=== PATIENT | female | born 1985 | race Caucasian/White ===

== ENCOUNTER 2016-10-13 06:57 | Outpatient (CLI) | payer BC, OTHER ==
[2016-10-14 20:52] LABS: TEST RESULT REPORT (())
== END 2016-10-13 06:58 | disposition home or self-care (01) ==
LOC: LAB.R 06:57
PROVIDERS: ATTEND Nurse Practitioner Obstetrics & Gynecology
DX: N76.0 Acute vaginitis (principal)
CPT/HCPCS: 81599; 87480; 87510; 87660

== ENCOUNTER 2017-03-16 11:25 | Outpatient (CLI) | payer OTHER ==
[2017-03-16 18:58] LABS: BASOPHILS % (AUTO) 0.4 %; EOSINOPHILS # (AUTO) 0.1 10^3/uL (0.0-0.7); HCT - HEMATOCRIT 37.3 % (37.0-47.0); HGB - HEMOGLOBIN 12.4 g/dL (12.0-16.0); LYMPHOCYTES % (AUTO) 17.2 %; MEAN CORPUSCULAR HEMOGLOBIN 30.5 pg (27.0-31.0); MEAN CORPUSCULAR HGB CONC 33.4 g/dL (32.0-36.0); MEAN CORPUSCULAR VOLUME 91.5 fL (81.0-99.0); MONOCYTES # (AUTO) 0.3 10^3/uL (0.0-1.0); NEUTROPHILS # (AUTO) 4.2 10^3/uL (1.5-6.6); NEUTROPHILS % (AUTO) 75.4 %; RED BLOOD COUNT 4.07 10^6/uL (4.20-5.40); RED CELL DISTRIBUTION WIDTH 13.2 % (12.0-15.0); UNCORRECTED WHITE BLOOD COUNT 5.6 x10^3/uL; WHITE BLOOD COUNT 5.6 x10^3/uL (4.8-10.8)
[2017-03-17 11:31] LABS: TEST RESULT REPORT
== END 2017-03-16 11:26 | disposition home or self-care (01) ==
LOC: LAB.WCP 11:25
PROVIDERS: ATTEND Nurse Practitioner Obstetrics & Gynecology
DX: Z36.9 Encounter for antenatal screening, unspecified (principal)
CPT/HCPCS: 36415; 81599; 85025; 86762; 86803; 86850; 86900; 86901; 87086; 87340; 87389

== ENCOUNTER 2017-06-01 13:50 | Outpatient (CLI) | payer OTHER | END 2017-06-01 13:51 | disposition home or self-care (01) | LOC: DI 13:50 | PROVIDERS: ATTEND Registered Nurse | DX: R01.1 Cardiac murmur, unspecified (principal) | CPT/HCPCS: 93306 ==

== ENCOUNTER 2017-06-02 07:30 | Outpatient (CLI) | payer OTHER ==
--- NOTE | 2017-06-03 11:47 | Ultrasound Report ---
OB ULTRASOUND: 06/02/2017 CLINICAL INDICATION: anatomy. TECHNIQUE: Real-time scanning was performed with assistance representative static images obtained. LAST MENSTRUAL PERIOD: 01/10/2017 Clinical Age: 20 weeks 3 days US Age: 20 weeks 5 days EFW Hadlock: 370 g EFW% Hadlock: 59% Heart Rate: 139 bpm EDC: 10/17/2017 US EDC: 10/15/2017 BPD Hadlock: 20 weeks 5 days Mean mm 48.7 HC Hadlock: 20 weeks 4 days Mean mm 182.2 AC Hadlock: 20 weeks 6 days Mean mm 156.8 FL Hadlock: 20 weeks 3 days Mean mm 33.5 Presentation: cephalic Placental Location: posterior Cervical Length: 4.6 cm Amniotic Fluid: 3.7 cm FINDINGS: There is a single viable intrauterine gestation, in cephalic presentation. heart rate is 139 BPM. The placenta is posterior, without evidence of previa. Cord insertion into the placenta is marginal, but not velamentous. Amniotic fluid volume is subjectively normal, with an MILTON of 3.7. By size, the fetus measures 20 weeks 5 days (20 weeks 3 days by LMP). The following anatomic structures were visualized and appear normal: The intracranial contents, including the ventricles and posterior fossa; the lips and orbits; the spine; the heart, including 4 chamber view and outflow tracts, and diaphragm; the abdominal contents, including the stomach, the bilateral kidneys, and urinary bladder, as well as a normal 3 vessel cord insertion; 4 limbs. No free fluid or adnexal lesion is appreciated. IMPRESSION: SINGLE VIABLE INTRAUTERINE GESTATION, WITH SIZE IN KEEPING WITH LMP DATING. NORMAL ANATOMIC SURVEY. MARGINAL PLACENTAL CORD ORIGIN, WHICH CAN BE ASSOCIATED WITH GROWTH RESTRICTION. RECOMMEND FOLLOWUP ULTRASOUND FOR GROWTH ASSESSMENT AND TO EVALUATE FOR PROGRESSION TO VELAMENTOUS CORD ORIGIN 28- 32 WEEKS GESTATIONAL AGE. MTDD
== END 2017-06-02 07:31 | disposition home or self-care (01) ==
LOC: DI 07:30
PROVIDERS: ATTEND Registered Nurse
DX: Z34.82 Encounter for supervision of other normal pregnancy, second trimester (principal)
CPT/HCPCS: 76811

== ENCOUNTER 2017-07-12 19:31 | Outpatient (CLI) | payer OTHER ==
[2017-07-12 20:19] VITALS: BP 101/81
[2017-07-12 20:32] LABS: RUPTURE OF MEMBRANES PLUS NEGATIVE (NEGATIVE)
== END 2017-07-12 20:50 | disposition home or self-care (01) ==
LOC: WFO 19:31 → FBP 19:38 → WFO 20:50
PROVIDERS: ATTEND Nurse Practitioner Obstetrics & Gynecology
DX: O47.02 False labor before 37 completed weeks of gestation, second trimester (principal); Z3A.26 26 weeks gestation of pregnancy
CPT/HCPCS: 84112; 99212

== ENCOUNTER 2017-07-23 08:27 | Outpatient (CLI) | payer OTHER ==
[2017-07-23 09:53] LABS: HGB - HEMOGLOBIN 12.4 g/dL (12.0-16.0); MEAN CORPUSCULAR HEMOGLOBIN 31.9 pg (27.0-31.0); MEAN CORPUSCULAR VOLUME 93.8 fL (81.0-99.0); MEAN PLATELET VOLUME 6.6 fL (7.9-10.8); RED BLOOD COUNT 3.88 10^6/uL (4.20-5.40); RED CELL DISTRIBUTION WIDTH 13.5 % (12.0-15.0); WHITE BLOOD COUNT 5.9 x10^3/uL (4.8-10.8)
== END 2017-07-23 08:28 | disposition home or self-care (01) ==
LOC: LAB 08:27
PROVIDERS: ATTEND Registered Nurse
DX: Z34.82 Encounter for supervision of other normal pregnancy, second trimester (principal)
CPT/HCPCS: 36415; 82950; 86850

== ENCOUNTER 2017-08-20 09:37 | Outpatient (CLI) | payer OTHER ==
--- NOTE | 2017-08-20 11:38 | Ultrasound Report ---
OB FOLLOWUP: 08/20/2017 CLINICAL INDICATION: Velamentous insertion of umbilical cord, check growth. TECHNIQUE: Real-time scanning was performed with national account representative static images obtained. COMPARISON: 06/02/2017. LAST MENSTRUAL PERIOD: 01/10/2017 Clinical Age: 31 weeks 5 days US Age: 32 weeks 1 day EFW Hadlock: 1914 grams EFW% Hadlock: 49.55% Heart Rate: 142 bpm EDC: 10/17/2017 US EDC: 10/14/2017 BPD Hadlock: 32 weeks 1 day; Mean mm 80 HC Hadlock: 32 weeks 3 days; Mean mm 294 AC Hadlock: 32 weeks 1 day; Mean mm 281 FL Hadlock: 32 weeks 0 days; Mean mm 62 Presentation: cephalic Placental Location: posterior Cervical Length: -- Amniotic Fluid: MILTON 11.9 cm; MVP 3.79 cm FINDINGS There is a single viable intrauterine gestation, in cephalic presentation. heart rate is 142 BPM. The placenta is posterior, without evidence of previa. Amniotic fluid volume is normal, with an MILTON of 11.9. By size of the fetus measures 32 weeks 1 day (31 weeks 5 days by LMP). Estimated weight by Hadlock method is 1914 grams, 50th percentile. No free fluid or adnexal lesion is appreciated. IMPRESSION: SINGLE VIABLE INTRAUTERINE GESTATION, WITH EXPECTED GROWTH. ESTIMATED WEIGHT BY HADLOCK METHOD OF 1914 GRAMS, 50TH PERCENTILE. TD: 08/20/2017 10:43 MTDD
== END 2017-08-20 09:38 | disposition home or self-care (01) ==
LOC: DI 09:37
PROVIDERS: ATTEND Registered Nurse
DX: O43.123 Velamentous insertion of umbilical cord, third trimester (principal)
CPT/HCPCS: 76816

== ENCOUNTER 2017-09-08 11:07 | Outpatient (CLI) | payer OTHER | END 2017-09-08 11:08 | disposition home or self-care (01) | LOC: LAB.R 11:07 | PROVIDERS: ATTEND Nurse Practitioner Obstetrics & Gynecology | DX: N89.8 Other specified noninflammatory disorders of vagina (principal) | CPT/HCPCS: 87070; 87181 ==

== ENCOUNTER 2017-09-18 11:20 | Outpatient (CLI) | payer OTHER | END 2017-09-18 11:21 | disposition home or self-care (01) | LOC: LAB.R 11:20 | PROVIDERS: ATTEND Registered Nurse | DX: Z36.9 Encounter for antenatal screening, unspecified (principal) | CPT/HCPCS: 87081 ==

== ENCOUNTER 2017-09-25 11:22 | Outpatient (CLI) | payer OTHER ==
[2017-09-25 12:08] VITALS: BP 95/60
[2017-09-25 12:11] LABS: BASOPHILS % (AUTO) 0.3 %; EOSINOPHILS % (AUTO) 0.6 %; HGB - HEMOGLOBIN 12.7 g/dL (12.0-16.0); LYMPHOCYTES # (AUTO) 1.3 10^3/uL (1.5-3.5); LYMPHOCYTES % (AUTO) 16.9 %; MEAN CORPUSCULAR HGB CONC 33.6 g/dL (32.0-36.0); MEAN CORPUSCULAR VOLUME 95.2 fL (81.0-99.0); MEAN PLATELET VOLUME 7.4 fL (7.9-10.8); MONOCYTES # (AUTO) 0.6 10^3/uL (0.0-1.0); MONOCYTES % (AUTO) 8.4 %; NEUTROPHILS # (AUTO) 5.6 10^3/uL (1.5-6.6); NEUTROPHILS % (AUTO) 73.8 %; PLT - PLATELET COUNT 142 10^3/uL (130-450); RED BLOOD COUNT 3.97 10^6/uL (4.20-5.40); WHITE BLOOD COUNT 7.5 x10^3/uL (4.8-10.8)
== END 2017-09-25 12:45 | disposition home or self-care (01) ==
LOC: WFO 11:22 → FBP 11:24 → WFO 12:45
PROVIDERS: ATTEND Nurse Practitioner Obstetrics & Gynecology
DX: O36.8330 Maternal care for abnormalities of the fetal heart rate or rhythm, third trimester, not applicable or unspecified (principal); Z3A.36 36 weeks gestation of pregnancy
CPT/HCPCS: 36415; 59025; 85025

== ENCOUNTER 2017-10-15 17:58 | Outpatient (CLI) | payer OTHER ==
[2017-10-15 18:32] VITALS: BP 115/67
== END 2017-10-15 19:00 | disposition home or self-care (01) ==
LOC: WFO 17:58 → FBP 18:01 → WFO 19:00
PROVIDERS: ATTEND Registered Nurse
DX: Z34.83 Encounter for supervision of other normal pregnancy, third trimester (principal)
CPT/HCPCS: 99213

== ENCOUNTER 2017-10-16 06:24 | Inpatient (IN) | payer OTHER ==
[2017-10-16] MEDS ORDERED: SODIUM CHLORIDE FLUSH 0.9% 10 ML SYRINGE IVP PRN (06:55)
[2017-10-16] MEDS: LACTATED RINGERS 1,000 ML IV SCH ×2 (06:55→08:17)
[2017-10-16] MEDS ORDERED: LACTATED RINGERS 1,000 ML IV ONE (07:03)
[2017-10-16] MEDS ORDERED: OXYTOCIN/SODIUM CHLORIDE 500 ML IV ONE (07:03)
[2017-10-16] MEDS ORDERED: SODIUM CHLORIDE FLUSH 0.9% 10 ML SYRINGE ONE ×2 (07:03→18:09)
[2017-10-16 07:12] LABS: BASOPHILS % (AUTO) 0.3 %; EOSINOPHILS % (AUTO) 0.3 %; HGB - HEMOGLOBIN 12.8 g/dL (12.0-16.0); LYMPHOCYTES # (AUTO) 1.2 10^3/uL (1.5-3.5); MEAN CORPUSCULAR HEMOGLOBIN 31.7 pg (27.0-31.0); MEAN CORPUSCULAR HGB CONC 33.9 g/dL (32.0-36.0); MEAN CORPUSCULAR VOLUME 93.6 fL (81.0-99.0); MEAN PLATELET VOLUME 8.3 fL (7.9-10.8); MONOCYTES # (AUTO) 0.7 10^3/uL (0.0-1.0); MONOCYTES % (AUTO) 7.7 %; NEUTROPHILS # (AUTO) 6.6 10^3/uL (1.5-6.6); NEUTROPHILS % (AUTO) 77.7 %; PLT - PLATELET COUNT 169 10^3/uL (130-450); RED BLOOD COUNT 4.02 10^6/uL (4.20-5.40); RED CELL DISTRIBUTION WIDTH 12.9 % (12.0-15.0); WHITE BLOOD COUNT 8.5 x10^3/uL (4.8-10.8)
[2017-10-16] MEDS ORDERED: PENICILLIN G POTASSIUM 5,000,000 UNIT in SODIUM CHLORIDE 0.9% MINIBAG 100 ML IV ONE (07:14)
[2017-10-16] MEDS ORDERED: fentaNYL 100 MCG/2 ML VIAL IVP PRN (07:20)
[2017-10-16] MEDS ORDERED: ONDANSETRON 4 MG/2 ML VIAL IVP PRN ×2 (07:20→10:03)
--- NOTE | 2017-10-16 07:23 | HISTORY & PHYSICAL EXAMINATION ---
Admit History - Instructions [place]/Slash: -Left hand click circles element as positive or present. -Right hand click slashes element as negative or not present. - Visit Reason Visit Reason: Contractions (beginning at 03:30) - : 2 Parity: 1 Premature: 0 Ectopic: 0 : 0 Care: positive: [facility] (beginning @ 8 weeks' gestation x15 total visits) Risk/History: positive: None Complications This : positive: Other (recurrent vulvovaginal candidiasis, e.coli vaginal colonization, GBS +) Smoking Status: Never smoker - Mother's Labs Mother's Blood Type: positive: O Mother's RH: positive: Positive GBS: positive: Group B Strep Positive Rubella Status: positive: Immune - Other Maternal History Other Maternal History: PMH: depression, stable on sertraline t/o PSH: None OBHx: 2016 41 weeks s/p IOL 8#11oz male w/o complication ([facility]) GYNHx: Hx HPV 2009, NILM pap 2015, recurrent vulvovaginal candidiasis, vaginal colonization w/ e. coli, tx'ed this w/ vaginal clindamycin w/ good effect SocHx: to Mamadou, denies DV; works f/t as [employer] in [place]; financially stable; denies etoh/drugs/tobacco, hx depression, presently stable on sertraline FamHx: non-contributory Meds/Allgy - Home Medications Home Medications: Ambulatory Orders Medication Instructions Recorded Confirmed Cephalexin 1 cap PO QID 06/08/15 06/08/15 - Allergies Allergies/Adverse Reactions: Allergies Allergy/AdvReac Type Severity Reaction Status Date / Time No Known Drug Allergies Allergy Verified 06/08/15 09:37 Review of Systems - Constitutional Constitutional: reports: Fatigue. denies: Fever, Chills, Weakness - Eyes Eyes: denies: Blurred vision, Spots in vision - Cardiovascular Cariovascular: denies: Irregular heart rate, Palpitations, Chest pain, Edema - Respiratory Respiratory: denies: Cough, Wheezing, SOB at rest, SOB with exertion - Gastrointestinal Gastrointestinal: reports: Abdominal pain (described as contractions). denies: Constipation, Diarrhea, Change in bowel habits, Nausea, Vomiting - Genitourinary Genitourinary: reports: Frequency, Urgency, Incontinence (stress). denies: Dysuria - Musculoskeletal Musculoskeletal: reports: Muscle pain, Back pain. denies: Muscle aches - Integumentary Integumentary: denies: Rash, Pruritis, Lesions - Neurological Neurological: denies: General weakness, Focal weakness, Headache, Dizziness, Numbness - Psychiatric Psychiatric: reports: Depression (managed for now), Anxiety (re: delivery) - All Other Systems All Other Systems: reports: Other (+FM, some bloody show this am, no LOF, contractions began @ 03:30) Physical - Abdominal Exam Vital Signs: Temp Pulse Resp BP Pulse Ox 36.9 C 47 L 18 116/71 100 10/16/17 07:00 10/16/17 07:00 10/16/17 07:00 10/16/17 07:00 10/16/17 07:00 Contraction Frequency (min/apart): 2 Contraction Intensity: positive: Strong Uterine Resting Tone: positive: Soft - Monitoring Heart Rate Baseline: 140 Strip Review: positive: Category I - Presentation Presentation: positive: Vertex - Vaginal Exam Membranes: positive: Membranes intact Dilation (in cm): 8 Effacement (%): 100 Station: positive: -1 (per RN) Cervical Position: positive: Anterior - Speculum Exam Speculum Exam Performed: positive: No Findings: negative: Gross leak - Other Notes Labor Progress Note/Additional Text: Eva Tinajero is a 31 y/o at 39w6d by 8wk whose has been complicated by stable depression on sertraline, recurrent vulvovaginal candidiasis w/ tx w/ fluconazole, miconazole, terconazole over the course of the , vaginal colonization w/ e. coli w/ treatment w/ clindamycin, and GBS positive status. She has had an otherwise unremarkable . She presents today w/ complaint of 4 hours of contraction activity that woke her from sleep & has been progressively intensifying since. She denies LOF. She reports a small amount of bloody vaginal mucous. She reports good FM. She is accompanied by her , Mamadou, who is involved & supportive. PE: GEN: AAOX3, UNCOMFORTABLE, GRAVID FEMALE HEENT: GROSSLY NORMOCEPHALIC, ATRAUMATIC RESP: LUNGS B/L CTA T/O CARDIAC: RRR NLS1S2, GR I SYSTOLIC EJECTION MURMUR ABD: GRAVID, NT, PALPABLY STRONG UTERINE CONTRACTIONS, LIE LONGITUDINAL, PRESENTATION CEPHALIC, EFW 7.5-8# : NO LESION, +MUCOID VAGINAL D/C OB: UTERINE CONTRACTIONS Q 2-3 MIN X90 SECONDS, PALP STRONG; EFM BL 140BPM, + ACCELS, NO DECELS, MOD VARIABILITY; SVE PER RN: 8/100/-1 IBOW MS: FROM T/O, NO DEFORMITY, NO EDEMA SKIN: WARM, WELL-PERFUSED, C/D/I, NO LESION, +TATTOOS NEURO: NO FOCAL DEFICIT PSYCH: SOME ANXIETY REGARDING LABOR STATUS, IMPENDING DELIVERY, NO DEPRESSIVE SYMPTOMS, PLEASANTLY CONVERSANT Plan for Labor - Plan For Labor I expect patient to be DC'd or transferred within 96 hours.: Yes Plan for Labor: 1. Admit, insert IV, begin fluid bolus per protocol for pt desire for epidural 2. Begin PCN 5mill units for GBS prophylaxis per protocol 3. cbc/BB hold 4. Reviewed pain management modalities @ length, PARQ held re: nitrous oxide, pt to utilize until epidural in place 5. Reassess cervical status x4 hours, earlier PRN 6. Fluconazole 200mg IV s/p PCN for GBS prophylaxis, given chronic VVC & risk of recurrence 7. Anticipate
[2017-10-16] MEDS ORDERED: FLUCONAZOLE 200 MG/100 ML 100 ML IV SCH (08:00)
[2017-10-16] MEDS ORDERED: fent/BUPIV 2 MCG/0.125% 250 ML EP ONE (08:01)
[2017-10-16] MEDS ORDERED: SODIUM CHLORIDE FLUSH 0.9% 10 ML SYRINGE IVP SCH (09:00)
[2017-10-16] MEDS ORDERED: NALOXONE 0.4 MG/ML VIAL IVP PRN (10:03)
[2017-10-16] MEDS ORDERED: NALBUPHINE 10 MG/ML AMP IVP PRN (10:03)
[2017-10-16] MEDS ORDERED: LACTATED RINGERS 500 ML IV ONE (10:03)
[2017-10-16] MEDS ORDERED: diphenhydrAMINE INJ 50 MG/ML VIAL IVP PRN (10:03)
[2017-10-16] MEDS ORDERED: ePHEDrine 50 MG/ML VIAL IVP PRN (10:03)
[2017-10-16] MEDS ORDERED: fent/BUPIV 2 MCG/0.125% 250 ML EP PRN (10:03)
[2017-10-16] MEDS ORDERED: PENICILLIN G POTASSIUM 2,500,000 UNIT in SODIUM CHLORIDE 0.9% 100ML 100 ML IV SCH (11:00)
--- NOTE | 2017-10-16 12:59 | DELIVERY NOTE ---
Delivery Note - Labor Labor: positive: Spontaneous - Presentation Presentation: positive: Vertex, ROP - right occiput posterior - Nuchal Cord Nuchal Cord: positive: None - Anesthetic Anesthetic Type: Anesthetic: positive: Lidocaine - 1% plain Volume: positive: 5cc - Amniotic Fluid Description Amniotic Fluid Description: positive: Clear - Episiotomy Type Episiotomy Type: positive: None - Laceration Laceration: positive: 2nd degree - Suture Suture Type: positive: Vicryl Suture Size: positive: 2-0 - Delivery Outcome Delivery Outcome: positive: Livebirth - [place]: positive: Placed in direct skin contact with mother, Stimulated, Warmed , [place] used sex: positive: Male - Cord Cord: positive: 3 vessels, Other (velamentous marginal cord insertion w/ avulsion w/ placental delivery) - Placenta Placenta: positive: Intact, Manual removal - Estimated Blood Loss Estimated Blood Loss (in cc): 200 - Post Delivery Events Post Delivery Events: positive: No post delivery events - Delivery Comments (Free Text/Narrative) Delivery Comments (Free Text/Narrative): Eva Tinajero is a 31 y/o [id number] who presented in spontaneous, active labor @ term. She received GBS prophylaxis w/ 2 doses IV PCN prior to delivery. She utilized self-administered inhaled nitrous oxide followed by epidural anesthesia for pain management. She progressed spontaneously to complete dilatation @ 1157, for a total 1st stage duration of 8 hours, 27 minutes. FHTs monitored electronically t/o & consistently cat I. Pushed w/ direction to viable male in ROP position over 2nd degree perineal laceration @ 1231, for a total 2nd stage duration of 34 minutes. vigorous w/ spontaneous, lusty cry. Placed to maternal abd for drying/stim. Delayed cord clamping until cessation of pulsation, then cord clamped x2 by CNM, cut by FOB. 3VC noted, cord blood obtained. Active management of the 3rd stage w/ Pitocin in IV fluids. Avulsion of velamentous, marginally inserted cord w/ gentle traction; placenta manually extracted, intact, @ 1238, for a total 3rd stage duration of 7 minutes. FF @ U. Vagina & perineum inspected & 2nd degree perineal laceration noted; repaired under epidural anesthesia w/ additional infiltration of 7mL 1% lidocaine using 2-0 vicryl. Hemostatic & well-approximated. EBL 200mL. Mother & infant stable. apgars 7/9, weight pending. Name: KEVIN. Plans & reports previously successful experience. Infant nuzzling @ breast w/in 15 minutes of delivery.
[2017-10-16] MEDS ORDERED: WITCH HAZEL/GLYCERIN 1 EACH MED..PAD TOP PRN (13:01)
[2017-10-16] MEDS ORDERED: OXYTOCIN/SODIUM CHLORIDE 250 ML IV ONE (13:01)
[2017-10-16] MEDS ORDERED: MAGNESIUM HYDROXIDE 2,400 MG/30 ML UDC PO PRN (13:01)
[2017-10-16] MEDS ORDERED: HYDROCORTISONE/PRAMOXINE 10 GM PR PRN (13:01)
[2017-10-16] MEDS ORDERED: HYDROCORTISONE 1% CREAM 28 GM TUBE PR PRN (13:01)
[2017-10-16] MEDS ORDERED: LIDOCAINE 1% 50 ML MDV TD ONE (13:26)
[2017-10-16] MEDS: ACETAMINOPHEN 500 MG TABLET PO SCH ×2 (14:44→21:38)
[2017-10-16] MEDS: IBUPROFEN 800 MG TABLET PO SCH ×2 (14:45→21:38)
[2017-10-16] MEDS: SERTRALINE 50 MG TABLET PO SCH (17:26)
[2017-10-16] MEDS ORDERED: METHYLERGONOVINE 0.2 MG/ML AMP ONE (21:31)
[2017-10-16] MEDS: DOCUSATE SODIUM 100 MG CAPSULE PO SCH (21:38)
[2017-10-17] MEDS: IBUPROFEN 800 MG TABLET PO SCH ×2 (03:56→09:47)
[2017-10-17] MEDS: ACETAMINOPHEN 500 MG TABLET PO SCH (05:41)
[2017-10-17] MEDS: DOCUSATE SODIUM 100 MG CAPSULE PO SCH (09:47)
[2017-10-17] MEDS: SERTRALINE 50 MG TABLET PO SCH (10:30)
--- NOTE | 2017-10-17 12:02 | Discharge Plan ---
Discharge Plan Disposition: 01 Home, Self Care Condition: Good Diet: Regular Activity Restrictions: pelvic rest x6 weeks Shower Restrictions: No Driving Restrictions: No Weight Bearing: Full Weight Instruction Topics: Vaginal After, Breastfeed How To, Jaundice Signs Inf , Exercises Kegel Additional Instructions or Follow Up instructions: outpatient clinic x1 week, x3 weeks, x8 weeks No Smoking: If you smoke, Please STOP! Call for help. Follow-up with: Marley Mcmahon, FARTUN, JANNETH [Provider Admit Priv/Credential] -
--- NOTE | 2017-10-17 12:05 | DISCHARGE SUMMARY ---
"Discharge Summary Admit Date: 10/16/17 Discharge Date: 10/17/17 Discharging Provider: geraldine Code Status: Attempt Resuscitation Condition at Discharge: Good Discharge Disposition: 01 Home, Self Care Discharge Facility Name: [facility] - DIAGNOSES Admission Diagnoses: active spontaneous labor @ term Discharge Diagnoses with Status of Each Condition: 2nd degree perineal laceration w/ repair - HPI History of Present Illness: Eva Tinajero is a 31 y/o [id number] who presented in spontaneous, active labor @ term. She received epidural anesthesia for pain management & progressed spontaneously to complete dilatation. She received 2 doses IV PCN for GBS prophylaxis. She underwent AROM @ 10cm dilatation & delivered a viable male vaginally over a 2nd degree perineal laceration w/o complication. Her laceration was repaired & she was well. - CONSULTS | PROCEDURES Consultations: anesthesia Procedures: Epidural placement IPAP for GBS Repair of 2nd degree perineal laceration - HOSPITAL COURSE Hospital Course: , Eva is doing well. She is ambulating & voiding w/o difficulty or incontinence. She is passing flatus & tolerating a regular diet. Her pain is well-controlled w/ non-opioid analgesia. She reports minimal lochia rubra. She is exclusively w/o difficulty & reports a previously successful experience. She is not planning another @ this time. She denies hx of pp depression but has a hx of depression generally. She declines SSRI @ this time but has available should she desire to begin. She will have 12 weeks of pp leave & has excellent social support. She is able to fully articulate pp warning s/sx, including pp depression s/sx, and pp aftercare instructions. She is ready to leave the hospital. - ALLERGIES Allergies/Adverse Reactions: Allergies Allergy/AdvReac Type Severity Reaction Status Date / Time No Known Drug Allergies Allergy Verified 06/08/15 09:37 - MEDICATIONS Home Medications: Ambulatory Orders Medication Instructions Recorded Confirmed Hydrocortisone/Pramoxine [Epifoam] 1 spray IA QID PRN bottle 10/17/17 Ibuprofen [Motrin] 800 mg PO Q6H tablet 10/17/17 Sertraline [Zoloft] 50 mg PO DAILY tablet 10/17/17 - PHYSICAL EXAM AT DISCHARGE General Appearance: positive: No acute distress, Alert Respiratory: positive: Chest non-tender, No respiratory distress, Breath sounds nml Cardiovascular: positive: Regular rate & rhythm, No murmur, No gallop Abdomen: positive: Non-tender, Other (FF U-1) Skin: positive: Color nml, No rash, Warm, Dry Extremities: positive: Non-tender, Full ROM, Nml appearance Neurologic/Psychiatric: positive: Oriented x3, CN's nml (2-12), Motor nml, Sensation nml, Mood/affect nml - LABS Result Diagrams: 10/16/17 06:58 - FOLLOW UP Follow Up: x1 week in outpt clinic, earlier PRN - TIME SPENT Time Spent in Discharge (Minutes): 30"
[2017-10-17 13:56] VITALS: BP 107/72
== END 2017-10-17 14:30 | disposition home or self-care (01) | DRG 774 ==
LOC: WFO 06:24 → FBP 06:25 → WFO 06:54 → FBP 06:55
PROVIDERS: ADMIT Registered Nurse; ATTEND Registered Nurse
PROC: 10E0XZZ Delivery of Products of Conception, External Approach (ICD-10-PCS; principal; 2017-10-16)
PROC: 0KQM0ZZ Repair Perineum Muscle, Open Approach (ICD-10-PCS; 2017-10-16)
PROC: 10907ZC Drainage of Amniotic Fluid, Therapeutic from Products of Conception, Via Natural or Artificial Opening (ICD-10-PCS; 2017-10-16)
DX: O99.824 Streptococcus B carrier state complicating childbirth (principal); O98.82 Other maternal infectious and parasitic diseases complicating childbirth; O70.1 Second degree perineal laceration during delivery; B37.3 Candidiasis of vulva and vagina; O99.344 Other mental disorders complicating childbirth; F32.9 Major depressive disorder, single episode, unspecified; O43.123 Velamentous insertion of umbilical cord, third trimester; Z3A.39 39 weeks gestation of pregnancy; Z37.0 Single live birth; Z22.39 Carrier of other specified bacterial diseases
CPT/HCPCS: 85025; 99213

== ENCOUNTER 2019-12-21 07:00 | Outpatient (CLI) | payer OTHER ==
[2019-12-21 15:42] LABS: MUDS CUTOFF CONCENTRATIONS CUTOFF CONC BELOW:
[2019-12-21 15:55] LABS: BILIRUBIN,URINE NEGATIVE (NEGATIVE); GLUCOSE, URINE (UA) NEGATIVE (NEGATIVE); KETONES,URINE (UA) TRACE mg/dL (NEGATIVE); LEUKOCYTE ESTERASE, URINE NEGATIVE (NEGATIVE); NITRITE,URINE NEGATIVE (NEGATIVE); OCCULT BLOOD,URINE NEGATIVE (NEGATIVE); PROTEIN,URINE NEGATIVE (NEGATIVE); UROBILINOGEN,URINE 0.2 (NORMAL) E.U./dL (NORMAL)
[2019-12-21 16:00] LABS: CLARITY,URINE CLOUDY (CLEAR)
[2019-12-21 16:09] LABS: AMPHETAMINE SCREEN,URINE NEGATIVE (NEGATIVE); BENZODIAZEPINES SCREEN, URINE NEGATIVE (NEGATIVE); COCAINE SCREEN URINE NEGATIVE (NEGATIVE); METHADONE SCREEN, URINE NEGATIVE (NEGATIVE); METHAMPHETAMINES SCREEN, URINE NEGATIVE (NEGATIVE); OPIATE SCREEN, URINE NEGATIVE (NEGATIVE); OXYCODONE SCREEN, URINE NEGATIVE (NEGATIVE); PROPOXYPHENE SCREEN, URINE NEGATIVE (NEGATIVE); TRICYCLIC ANTIDEPRESSANT,URINE NEGATIVE (NEGATIVE)
[2019-12-21 16:22] LABS: AMORPHOUS SEDIMENT,UR Marked /LPF; BACTERIA,URINE None Seen /HPF (None Seen); RBC,URINE None Seen /HPF (0-5); SQUAMOUS EPITHELIAL CELL,UR NONE SEEN (<= Few)
== END 2019-12-21 23:59 | disposition home or self-care (01) ==
LOC: LAB.R 07:00
PROVIDERS: ATTEND Nurse Practitioner Obstetrics & Gynecology
DX: Z32.01 Encounter for pregnancy test, result positive (principal)
CPT/HCPCS: 80306; 81001; 87086

== ENCOUNTER 2020-01-04 08:38 | Outpatient (CLI) | payer OTHER ==
--- NOTE | 2020-01-04 16:46 | Ultrasound Report ---
PROCEDURE: OB First Trimester INDICATIONS: ROUTINE MAMMO OUTSIDE/PRIOR DATING DATA: Last menstrual period (LMP): 11/16/2019. LMP-based estimated date of delivery (ANA): 08/22/2020. First dating scan (date and location): 01/14/2020. Estimated date of delivery (ANA) from first dating scan: 08/22/2020. TECHNIQUE: Real-time scanning was performed of the fetus and maternal pelvic organs, with image documentation. COMPARISON: None FINDINGS: Embryo: Single live anterior is identified with crown-rump length measuring 0.9 cm corresp onding to 7 weeks 0 days. heart rate is identified at 141 bpm. Measurement variability in dating: +/- 4 weeks by LMP, +/- 7 days by mean sac diameter (use before 6 weeks gestation if crown-rump length not able to be measured), +/- 5 days by crown-rump length (6-12 weeks gestation). Maternal organs: Ovaries demonstrate a left corpus luteal cyst measuring 2.6 x 1.6 x 2.3 cm. Right o vary is not visualized.. Limited images through the kidneys demonstrate no hydronephrosis. IMPRESSION: 1. Single live intrauterine with ultrasound gestational age today of 7 weeks 0 days or spin e to ultrasound ANA of 07/2620. 2. Recommend follow-up imaging at 20-22 weeks for dates and anatomy. Reviewed by: Sharri Elkins MD on 01/04/2020 4:44 PM PDT Approved by: Sharri Elkins MD on 01/04/2020 4:44 PM PDT Station ID: [id number]
== END 2020-01-04 08:39 | disposition home or self-care (01) ==
LOC: DI 08:38
PROVIDERS: ATTEND Nurse Practitioner Obstetrics & Gynecology
DX: Z32.01 Encounter for pregnancy test, result positive (principal)
CPT/HCPCS: 76801

== ENCOUNTER 2020-01-26 07:00 | Outpatient (CLI) | payer OTHER ==
[2020-01-26 18:31] LABS: BASOPHILS % (AUTO) 0.3 %; EOSINOPHILS # (AUTO) 0.1 10^3/uL (0.0-0.7); EOSINOPHILS % (AUTO) 0.8 %; HGB - HEMOGLOBIN 11.9 g/dL (12.0-16.0); LYMPHOCYTES # (AUTO) 1.1 10^3/uL (1.5-3.5); LYMPHOCYTES % (AUTO) 17.5 %; MEAN CORPUSCULAR HEMOGLOBIN 31.1 pg (27.0-31.0); MEAN CORPUSCULAR HGB CONC 33.8 g/dL (32.0-36.0); MEAN CORPUSCULAR VOLUME 91.9 fL (81.0-99.0); MEAN PLATELET VOLUME 9.2 fL (7.9-10.8); MONOCYTES # (AUTO) 0.3 10^3/uL (0.0-1.0); NEUTROPHILS # (AUTO) 4.8 10^3/uL (1.5-6.6); NEUTROPHILS % (AUTO) 76.1 %; PLT - PLATELET COUNT 183 10^3/uL (130-450); RED BLOOD COUNT 3.83 10^6/uL (4.20-5.40); RED CELL DISTRIBUTION WIDTH 12.3 % (12.0-15.0); WHITE BLOOD COUNT 6.3 x10^3/uL (4.8-10.8)
[2020-01-26 22:17] LABS: TRICHOMONAS VAGINALIS DNA NEGATIVE (NEGATIVE)
[2020-01-27 10:57] LABS: HEPATITIS B SURFACE ANTIGEN NON-REACTIVE (NON-REACTIVE)
[2020-01-27 11:13] LABS: HEPATITIS C ANTIBODY NON-REACTIVE (NON-REACTIVE)
[2020-01-27 15:26] LABS: HIV AG/AB 4TH GEN NON-REACTIVE (NON-REACTIVE)
== END 2020-01-26 23:59 | disposition home or self-care (01) ==
LOC: LAB.WCP 07:00
PROVIDERS: ATTEND Advanced Practice Midwife
DX: Z34.90 Encounter for supervision of normal pregnancy, unspecified, unspecified trimester (principal); Z36.89 Encounter for other specified antenatal screening
CPT/HCPCS: 36415; 81599; 85025; 86592; 86762; 86787; 86803; 86850; 86900; 86901; 87340; 87389; 87491; 87591; 87661

== ENCOUNTER 2020-02-22 12:18 | Outpatient (CLI) | payer OTHER | END 2020-02-22 12:19 | disposition home or self-care (01) | LOC: COV 12:18 | PROVIDERS: ATTEND Family Medicine | DX: R05 Cough (principal); J02.9 Acute pharyngitis, unspecified; R09.81 Nasal congestion; J34.89 Other specified disorders of nose and nasal sinuses; Z20.828 Contact with and (suspected) exposure to other viral communicable diseases ==

== ENCOUNTER 2020-04-04 07:59 | Outpatient (CLI) | payer OTHER ==
--- NOTE | 2020-04-04 10:47 | Ultrasound Report ---
PROCEDURE: OB Detailed Eval INDICATIONS: SUPERVISION OF OUTSIDE/PRIOR DATING DATA: Last menstrual period (LMP): 11/16/2019. LMP-based estimated date of delivery (ANA): 08/22/2020. First dating scan (date and location): 01/04/2020. Estimated date of delivery (ANA) from first dating scan: 08/22/2020. TECHNIQUE: Real-time scanning was performed of the fetus, with image documentation and biometric measurements. Endovaginal scanning: Not performed COMPARISON: 01/04/2020 FINDINGS: General: A single living intrauterine gestation is present. Presentation: Variable Placenta: Placental position is anterior and low-lying, about 1.9 cm from the internal cervical os., Amniotic fluid index: 12.6 cm, normal for gestational age. heart rate: 144 beats per minute. Maternal cervical canal: 4.6 cm long; normal length is 2.5 cm or more. biometrics: Biparietal diameter: 4.9 cm, 20 weeks, 6 days Head circumference: 18.6 cm, 21 weeks, 0 days Abdominal circumference: 15.3 cm, 20 weeks, 4 days Femur length: 3.4 cm, 20 weeks, 6 days Estimated gestational age from initial scan: 20 weeks, 0 days. Composite gestational age from present scan: 20 weeks, 6 days Estimated weight and percentile: 372 g, 83rd percentile Measurement variability in biometric dating: +/- 10 days from 12-20 weeks gestation, +/- 2 weeks from 20-30 weeks gestation, +/- 3 weeks at 30 weeks gestation or later. Anatomic survey: Neuro: Ventricles are normal at less than 10 mm. Cisterna magna is normal at 3-11 mm. Cerebellum i s normal in size and morphology. Nuchal skin fold: Normal at less than 6 mm between 14 and 20 weeks gestational age. Face: Nose and lips, facial profile are normal. Spine: No evidence for spina bifida. Heart: 4-chambered heart is present, with normal ventricular outflow tracts. Diaphragm: Diaphragm is intact. Stomach: Left-sided stomach is present. Kidneys: No hydronephrosis. Normal is less than 5 mm in 2nd trimester, less than 7 mm in 3rd trimester. Cord: 3 vessel cord has orthotopic insertion. Bladder: Normal in size. Extremities: All 4 extremities are visualized. IMPRESSION: 1. Single live intrauterine with appropriate growth since the prior study. 2. Symmetric growth and normal anatomy. 3. Anterior low lying placenta. Consider follow-up in early third trimester to reassess placental pos ition. Reviewed by: Nichole Lopez MD on 04/04/2020 10:45 AM PST Approved by: Nichole Lopez MD on 04/04/2020 10:45 AM PST Station ID: [id number]
== END 2020-04-04 08:00 | disposition home or self-care (01) ==
LOC: DI 07:59
PROVIDERS: ATTEND Advanced Practice Midwife
DX: Z34.92 Encounter for supervision of normal pregnancy, unspecified, second trimester (principal); Z36.89 Encounter for other specified antenatal screening

== ENCOUNTER 2020-05-30 08:26 | Outpatient (CLI) | payer OTHER ==
[2020-05-30 09:30] LABS: HGB - HEMOGLOBIN 11.7 g/dL (12.0-16.0); MEAN CORPUSCULAR HEMOGLOBIN 31.5 pg (27.0-31.0); MEAN CORPUSCULAR HGB CONC 33.4 g/dL (32.0-36.0); MEAN CORPUSCULAR VOLUME 94.3 fL (81.0-99.0); MEAN PLATELET VOLUME 8.4 fL (7.9-10.8); RED BLOOD COUNT 3.71 10^6/uL (4.20-5.40); RED CELL DISTRIBUTION WIDTH 12.4 % (12.0-15.0); WHITE BLOOD COUNT 5.7 x10^3/uL (4.8-10.8)
== END 2020-05-30 08:27 | disposition home or self-care (01) ==
LOC: LAB 08:26
PROVIDERS: ATTEND Advanced Practice Midwife
DX: Z34.90 Encounter for supervision of normal pregnancy, unspecified, unspecified trimester (principal); Z36.89 Encounter for other specified antenatal screening
CPT/HCPCS: 36415; 82950; 85027

== ENCOUNTER 2020-06-20 07:57 | Outpatient (CLI) | payer OTHER ==
--- NOTE | 2020-06-20 13:00 | Ultrasound Report ---
PROCEDURE: OB F/U or Repeat INDICATIONS: LOW LYING PLACENTA OUTSIDE/PRIOR DATING DATA: Last menstrual period (LMP): 11/16/2019. LMP-based estimated date of delivery (ANA): 08/22/2020. First dating scan (date and location): 01/14/2020. Estimated date of delivery (ANA) from first dating scan: 08/22/2020. TECHNIQUE: Real-time scanning was performed of the fetus, with image documentation and biometric measurements. COMPARISON: OB ultrasound 04/04/2020, 01/04/2020 FINDINGS: General: A single living intrauterine gestation is present. Presentation: Vertex Placenta: Placental position is anterior, without previa. Previous low-lying placenta is not visual ized on current exam. Amniotic fluid index: 19.4 cm, 81st percentile for gestational age. heart rate: 36 beats per minute. Maternal cervical canal: Closed more. Estimated gestational age from initial scan: 31 weeks 0 days Other: Not applicable. IMPRESSION: 1. Single live intrauterine . 2. No evidence of previa. Previous low-lying placenta is not visualized. Reviewed by: Sharri Elkins MD on 06/20/2020 12:59 PM PDT Approved by: Sharri Elkins MD on 06/20/2020 12:59 PM PDT Station ID: [id number]
== END 2020-06-20 07:58 | disposition home or self-care (01) ==
LOC: DI 07:57
PROVIDERS: ATTEND Advanced Practice Midwife
DX: O44.43 Low lying placenta NOS or without hemorrhage, third trimester (principal); Z3A.31 31 weeks gestation of pregnancy

== ENCOUNTER 2020-07-25 08:32 | Outpatient (CLI) | payer OTHER | END 2020-07-25 23:59 | disposition home or self-care (01) | LOC: LAB.R 08:32 | PROVIDERS: ATTEND Nurse Practitioner Obstetrics & Gynecology | DX: Z36.85 Encounter for antenatal screening for Streptococcus B (principal) | CPT/HCPCS: 87797 ==

== ENCOUNTER 2020-08-23 01:52 | Inpatient (IN) | payer OTHER ==
[2020-08-23 02:26] LABS: RUPTURE OF MEMBRANES PLUS POSITIVE (NEGATIVE)
[2020-08-23] MEDS ORDERED: OXYTOCIN/SODIUM CHLORIDE 500 ML IV PRN (02:32)
[2020-08-23] MEDS ORDERED: OXYTOCIN 10 UNIT/ML VIAL IM PRN (02:32)
[2020-08-23] MEDS ORDERED: miSOPROStoL 200 MCG TABLET BC PRN (02:32)
[2020-08-23] MEDS ORDERED: ONDANSETRON 4 MG/2 ML VIAL IVP PRN (02:32)
[2020-08-23] MEDS ORDERED: CARBOPROST TROMETHAMINE 250 MCG/ML AMP IM PRN (02:32)
[2020-08-23] MEDS ORDERED: METHYLERGONOVINE 0.2 MG/ML VIAL IM PRN (02:32)
[2020-08-23] MEDS ORDERED: SODIUM CHLORIDE FLUSH 0.9% 10 ML SYRINGE IVP PRN (02:32)
[2020-08-23] MEDS ORDERED: TRANEXAMIC ACID IN NACL 1,000 MG/100 ML BAG IV PRN (02:32)
[2020-08-23] MEDS ORDERED: LIDOCAINE-MPF 1% 30 ML VIAL ID PRN (02:32)
--- NOTE | 2020-08-23 02:36 | HISTORY & PHYSICAL EXAMINATION ---
Admit History - Visit Reason Visit Reason: Membranes rupture - : 3 Parity: 2 Premature: 0 Ectopic: 0 : 0 Care: positive: [facility] Risk/History: positive: None Complications This : positive: None Smoking Status: Never smoker - Mother's Labs Mother's Blood Type: positive: O Mother's RH: positive: Positive GBS: positive: Group B Step Negative Rubella Status: positive: Immune Meds/Allgy - Home Medications Home Medications: Ambulatory Orders Medication Instructions Recorded Confirmed Hydrocortisone/Pramoxine [Epifoam] 1 spray [place] QID PRN bottle 10/17/17 Ibuprofen [Motrin] 800 mg PO Q6H tablet 10/17/17 Sertraline [Zoloft] 50 mg PO DAILY tablet 10/17/17 - Allergies Allergies/Adverse Reactions: Allergies Allergy/AdvReac Type Severity Reaction Status Date / Time No Known Drug Allergies Allergy Verified 06/08/15 09:37 Review of Systems - Constitutional Constitutional: denies: Fatigue, Fever, Chills - Eyes Eyes: denies: Blurred vision, Spots in vision, Dipolpia - Cardiovascular Cariovascular: denies: Palpitations, Chest pain, Edema - Respiratory Respiratory: denies: Cough, SOB at rest - Gastrointestinal Gastrointestinal: denies: Constipation, Diarrhea, Change in bowel habits - Integumentary Integumentary: denies: Rash, Pruritis - Neurological Neurological: denies: Headache Physical - Abdominal Exam Vital Signs: Temp Pulse Resp BP Pulse Ox 36.9 C 53 L 16 116/78 99 08/23/20 02:08 08/23/20 02:08 08/23/20 02:08 08/23/20 02:08 08/23/20 02:08 Contraction Frequency (min/apart): intermittent Contraction Intensity: positive: Mild Uterine Resting Tone: positive: Soft - Monitoring Heart Rate Baseline: 130 Strip Review: positive: Category I - Presentation Presentation: positive: Vertex - Vaginal Exam Membranes: positive: Membranes ruptured Dilation (in cm): 4 Effacement (%): 90 Station: positive: -2 Cervical Position: positive: Midposition - Speculum Exam Speculum Exam Performed: positive: No Findings: positive: Gross leak, Other Plan for Labor - Plan For Labor I expect patient to be DC'd or transferred within 96 hours.: Yes Plan for Labor: HPI: Eva is a 34yo @ 40.1wks gestation by LMP c/w 7.0wk U/S who presents to [facility] with complaints of vaginal leakage of clear fluid which occurred at 1230. She denies feeling consistent or uncomfortable contractions. She reports +FM. Upon arrival she was noted to intermittently contract but contractions palpate very mild and pt does not appreciate them as significant contractions. Grossly ruptured membranes confirmed with ROM plus which was positive. SVE /-2 which is unchanged from last SVE 1 week ago. She is supported by her Mamadou. [facility] through the duration of her which has remained uncomplicated with the exception of a low lying placenta noted on her 20wk ultrasound, however a follow up ultrasound was performed at 32 weeks and the low lying placenta had resolved. She will be admitted to [facility] for active management. Dating criteria: LMP: 11/16/2019 Initial U/S @ 7.0wks c/w LMP dating Serial exams: agree OB History: G1: 09/11/2015, @ 41wks, epidural. [facility], 8lb 14oz Male G2: 10/16/2017, @ 40wks, epidural. [facility], 8lb 6oz Male G3: Current Medications: PNV, Sertraline 25mg PO daily; Vitamin D; Vitamin C; Allergies: NKDA PMHx: Anxiety/depression Surgical Hx: [place] teeth Social Hx: Never smoker. No ETOH or IVDA. Mamadou. Sons Ky and Nikhil. Family Hx: depression - mother; multiple myeloma - father course: Initial U/S: @ 7.0wks c/w LMP dating for ANA 08/23/2019 O+, Rubella immune Gentic testing: declines FAS WNL with the exception of low-lying placenta which is measured 1.9cm from internal cervical os. Anterior placenta. 3VC. Size c/w dating. F/u ultrasound ordered to be completed in the third trimester. 06/20/2020 f/u - low lying placenta RESOLVED Flu: 12/21/2019 Glucola: 88 TDAP 05/30/2020 GBS at 36.0 weeks -negative HSV: denies self and partner Breast pump Rx provided MOD: . FOB: Mamadou. Two boys at home. Had epidurals with both, would like to try without this time. another BOY pp contraception:doesn't want more children. Hasn't like OCPs. Desires Paragard vs Mirena PAP: Done 01/18/2020, negative. Repeat in 2024 Physical Exam: Normocephalic, atraumatic Heart RRR w/o M/G/R Lungs CTAB Abdomen gravid, soft, nontender EFW 3800g SVE 4/90/-2. Vertex. Grossly ruptured membranes. (ROM plus positive) FHR baseline 130, moderate variability, + accels, no decels Contractions palpate mild intermittently Bilateral LE's no edema. Mood is good. Assessment: 34yo @ 40.1wks gestation by LMP c/w 7.0wk U/S PROM GBS neg FHR Category I Plan: Initiate pitocin for labor augmentation with titration per protocol. Continuous monitoring. Notify anesthesia for placement of epidural. Encouraged rotation in bed with peanut ball. Anticipate . Pt and verbalized understanding and agree to above plan. They deny further questions or concerns at this time.
[2020-08-23 02:51] LABS: BASOPHILS % (AUTO) 0.4 %; EOSINOPHILS % (AUTO) 0.7 %; HCT - HEMATOCRIT 34.7 % (37.0-47.0); HGB - HEMOGLOBIN 11.8 g/dL (12.0-16.0); LYMPHOCYTES # (AUTO) 1.4 10^3/uL (1.5-3.5); LYMPHOCYTES % (AUTO) 24.5 %; MEAN CORPUSCULAR HEMOGLOBIN 30.6 pg (27.0-31.0); MEAN CORPUSCULAR VOLUME 90.1 fL (81.0-99.0); MEAN PLATELET VOLUME 9.4 fL (7.9-10.8); MONOCYTES # (AUTO) 0.5 10^3/uL (0.0-1.0); MONOCYTES % (AUTO) 9.7 %; NEUTROPHILS # (AUTO) 3.6 10^3/uL (1.5-6.6); NEUTROPHILS % (AUTO) 64.2 %; PLT - PLATELET COUNT 141 10^3/uL (130-450); RED BLOOD COUNT 3.85 10^6/uL (4.20-5.40); RED CELL DISTRIBUTION WIDTH 11.9 % (12.0-15.0); WHITE BLOOD COUNT 5.5 x10^3/uL (4.8-10.8)
[2020-08-23] MEDS ORDERED: OXYTOCIN/SODIUM CHLORIDE 500 ML IV SCH (03:00)
[2020-08-23] MEDS: LACTATED RINGERS 1,000 ML IV SCH ×3 (03:08→13:54)
[2020-08-23] MEDS ORDERED: ROPIVACAINE 0.2% 200 MG/100 ML BAG EP ONE (03:10)
[2020-08-23] MEDS ORDERED: ePHEDrine 50 MG/ML VIAL IVP PRN (03:40)
[2020-08-23] MEDS ORDERED: ROPIVACAINE 0.2% 200 MG/100 ML BAG EP PRN (03:40)
[2020-08-23] MEDS ORDERED: NALBUPHINE 10 MG/ML AMP IVP PRN (03:40)
[2020-08-23] MEDS ORDERED: NALOXONE 0.4 MG/ML VIAL IVP PRN (03:40)
--- NOTE | 2020-08-23 03:40 | ANESTHESIA ---
Pre-Anesthesia VS, & Labs - Diagnosis active labor - Procedure vaginal delivery Vital Signs: Temp Pulse Resp BP Pulse Ox 36.9 C 50 L 16 116/78 99 08/23/20 02:34 08/23/20 02:34 08/23/20 02:34 08/23/20 02:08 08/23/20 02:08 Height: 5 ft 8 in Weight (kg): 78.925 kg Body Mass Index: 26.4 BMI Classification: Overweight - NPO Other (labor, clear liquids) - Is Patient ?: Yes - Lab Results Current Lab Results: Laboratory Tests 08/23/20 02:40: WBC 5.5, RBC 3.85 L, Hgb 11.8 L, Hct 34.7 L, MCV 90.1, MCH 30.6, MCHC 34.0, RDW 11.9 L, Plt Count 141, MPV 9.4, Neut # (Auto) 3.6, Lymph # (Auto) 1.4 L, [place] # (Auto) 0.5, Eos # (Auto) 0.0, Baso # (Auto) 0.0, Absolute Nucleated RBC 0.00, Nucleated RBC % 0.0 Fish Bones: 08/23/20 02:40 Home Medications and Allergies Active Medications Carboprost Tromethamine (Carboprost Tromethamine 250 Mcg/Ml Amp) 250 mcg IM Q15M PRN PRN Reason: Step 4: Hemorrhage protocol Stop: 08/28/20 02:33 Oxytocin/Sodium Chloride (Pitocin/Sodium Chloride) 500 mls @ 999 mls/hr IV PRN PRN; Protocol PRN Reason: POST- HEMORR PREVENTION Stop: 08/28/20 02:33 Tranexamic Acid (Tranexamic 1,000 Mg/100ml-Nacl) 1,000 mg in 100 mls @ 600 mls/hr IV .ONCE PRN PRN Reason: EBL >1200mL and within 3hr Stop: 08/28/20 02:33 Oxytocin/Sodium Chloride (Pitocin/Sodium Chloride) 500 mls @ 1 mls/hr IV TITR ASIF; Protocol Last Admin: 08/23/20 03:08 Dose: 1 milliunit/min, 1 mls/hr Documented by: Lactated Ringer's (Lr) 1,000 mls @ 150 mls/hr IV .Q6H40M ASIF Last Admin: 08/23/20 03:08 Dose: 150 mls/hr Documented by: Lidocaine HCl (Lidocaine-Mpf 1% 30 Ml Vial) 30 ml ID .ONCE PRN PRN Reason: PERINEAL REPAIR Stop: 08/28/20 02:33 Methylergonovine Maleate (Methylergonovine 0.2 Mg/Ml Vial) 0.2 mg IM .ONCE PRN PRN Reason: Step 2: Hemorrhage protocol Stop: 08/28/20 02:33 Misoprostol (Misoprostol 200 Mcg Tablet) 800 mcg BC .ONCE PRN PRN Reason: Step 3: Hemorrhage protocol Stop: 08/28/20 02:33 Ondansetron HCl (Ondansetron 4 Mg/2 Ml Vial) 4 mg IVP Q4H PRN PRN Reason: Nausea / Vomiting Oxytocin (Oxytocin 10 Unit/Ml Vial) 10 unit IM .ONCE PRN PRN Reason: Step one: If no IV access Stop: 08/28/20 02:33 Sodium Chloride (Sodium Chloride Flush 0.9% 10 Ml Syringe) 10 ml IVP PRN PRN PRN Reason: NEEDED PER PROVIDER ORDERS Sodium Chloride (Sodium Chloride Flush 0.9% 10 Ml Syringe) 10 ml IVP 0100,0900,1700 [facility] PNV Allergies/Adverse Reactions: Allergies Allergy/AdvReac Type Severity Reaction Status Date / Time No Known Drug Allergies Allergy Verified 06/08/15 09:37 Anes History & Medical History - Anesthetic History Family history of Anesthesia Complications: Denies Family history of Malignant Hyperthermia: Denies - Medical History Cardiovascular: reports: None Pulmonary: reports: None Gastrointestinal: reports: GERD (during ) Urinary: reports: None Neuro: reports: None Musculoskeletal: reports: None Endocrine/Autoimmune: reports: None Blood Disorders: reports: None Skin: reports: None Smoking Status: Never smoker Psychosocial: reports: No issues indicated History of Cancer?: No - Obstetrical History : 3 Parity: 2 Events: reports: None Complications: reports: None Exam General: Alert, Oriented x3, Cooperative, No acute distress Dental: WNL Mouth Openin Fingerbreadth Neck Mobility: Normal Mallampati classification: I Thyromental Distance: 4-6 cm Mental/Cognitive Status: Alert/Oriented X3, Normal for patient Plan Anesthesia Type: Epidural Consent for Procedure(s) Verified and Reviewed: Yes Code Status: Attempt Resuscitation ASA classification: 2-Mild systemic disease Is this case an emergency?: No
--- NOTE | 2020-08-23 08:24 | PROVIDER PROGRESS NOTE ---
Labor Progress Note - Uterine Monitoring Uterine Monitoring Mode: positive: External toco Contraction Frequency (min/apart): 2-4 Contraction Intensity: positive: Moderate Uterine Resting Tone: positive: Soft - Monitoring Monitor Mode: positive: External ultrasound Heart Rate Baseline: 120 Heart Rate Variability: positive: Moderate (6-25 bmp) Accelerations: positive: Present, 15x15 Decelerations: positive: None Strip Review: positive: Category I - Vaginal Exam Dilation (in cm): 5 Effacement (%): 90 Station: -1 Cervical Position: Anterior - Labor Progress Note Labor Progress Note/Additional Text: S: Feeling comfortable with her epidural. Was able to get a little rest last night after epidural placement. Feeling a little discouraged after SVE and states she was expecting advanced dilation. Her is supportive at the bedside. O: FHR baseline 120, moderate variability, + accels, no decels Contractions palpate moderate every 2-4 minutes with soft resting tone Pitocin @ 6mU/mL SVE 5/90/-1. Vertex A: 34yo @ 40.1wks gestation Early labor GBS neg P: Continue active management with pitocin and titrate per protocol. Continuos monitoring. Encouraged position changes in bed with peanut ball. Anticipate .
[2020-08-23] MEDS ORDERED: SODIUM CHLORIDE FLUSH 0.9% 10 ML SYRINGE IVP SCH (09:00)
--- NOTE | 2020-08-23 12:39 | PROVIDER PROGRESS NOTE ---
Labor Progress Note - Uterine Monitoring Uterine Monitoring Mode: positive: External toco Contraction Frequency (min/apart): 3-5 Contraction Intensity: positive: Moderate to strong Uterine Resting Tone: positive: Soft - Monitoring Monitor Mode: positive: External ultrasound Heart Rate Baseline: 130 Heart Rate Variability: positive: Moderate (6-25 bmp) Accelerations: positive: Present, 15x15 Decelerations: positive: None Strip Review: positive: Category I - Vaginal Exam Dilation (in cm): 7 Effacement (%): 100 Station: 0 - Labor Progress Note Labor Progress Note/Additional Text: S: Feeling slightly discouraged with cervical exam minimal change. She is sitting upright now. Her is supportive at the bedside. O: FHR baseline 130s, moderate variability, + accels, no decels Contractions palpate moderate every 3-5 minutes with soft resting tone SVE 7/100/0. Vertex Pitocin at 9mU/mL A: 34yo @ 40.1wks gestation Active labor GBS neg P: Continuous monitoring Continue titration of pitocin per protocol Anticipate .
--- NOTE | 2020-08-23 16:18 | PROVIDER PROGRESS NOTE ---
Labor Progress Note - Uterine Monitoring Uterine Monitoring Mode: positive: External toco Contraction Intensity: positive: Moderate to strong Uterine Resting Tone: positive: Soft - Monitoring Monitor Mode: positive: External ultrasound Heart Rate Baseline: 130 Heart Rate Variability: positive: Moderate (6-25 bmp) Accelerations: positive: Present, 15x15 Decelerations: positive: None Strip Review: positive: Category I - Vaginal Exam Dilation (in cm): 7 Effacement (%): 100 Station: 0 - Labor Progress Note Labor Progress Note/Additional Text: S: Continues to feel discouraged with cervical exam minimal change. She is sitting upright now. Her is supportive at the bedside. O: FHR baseline 130s, moderate variability, + accels, no decels Contractions palpate moderate every 3-5 minutes with soft resting tone SVE 7/100/0. Vertex Pitocin at 13mU/mL A: 34yo @ 40.1wks gestation Active labor GBS neg P: Continuous monitoring Continue titration of pitocin per protocol Anticipate .
[2020-08-23] MEDS ORDERED: WITCH HAZEL/GLYCERIN 1 PAD TOP PRN (18:32)
[2020-08-23] MEDS ORDERED: HYDROCORTISONE 1% CREAM 28 GM TUBE PR PRN (18:32)
--- NOTE | 2020-08-23 18:45 | DELIVERY NOTE ---
Delivery Note - Labor Labor: positive: Induced by oxytocin - Infant Delivery Method Delivery Method: positive: Spontaneous vaginal delivery - Presentation Presentation: positive: Vertex, RODRÍGUEZ - left occiput anterior - Nuchal Cord Nuchal Cord: positive: Present, Reduced - Amniotic Fluid Description Amniotic Fluid Description: positive: Clear - Episiotomy Type Episiotomy Type: positive: None - Laceration Laceration: positive: 1st degree, Perineal - Suture Suture Type: positive: Vicryl Suture Size: positive: 2-0 - Delivery Outcome Delivery Outcome: positive: Livebirth - [place]: positive: Placed in direct skin contact with mother, Stimulated, Warmed, [place] used sex: positive: Male - Cord Cord: positive: 3 vessels - Placenta Placenta: positive: Intact, Spontaneous - Estimated Blood Loss Estimated Blood Loss (in cc): 200 - Post Delivery Events Post Delivery Events: positive: No post delivery events - Delivery Comments (Free Text/Narrative) Delivery Comments (Free Text/Narrative): Labor: This 34yo @ 40.1wks gestation presented to [facility] with c/o vaginal leakage of clear fluid which occurred at 0030 on 08/23/2020. Cervix was 4/90/0 and vertex. She was noted to be grossly ruptured with no contractions appreciated via tocometry. Pitocin was initiated for induction of labor with a maximum infusion rate of 13mU/mL. Epidural placed per maternal request. FHR pattern demonstrated Category I pattern throughout labor. Patient progressed to c/c/+2 at 1749 with onset of active pushing at 1755. : Normal of viable male infant on 08/23/2020 @ 1803. Nuchal cord x 1 was easily reduced. The was placed on maternal abdomen, stimulated, dried, and placed skin to skin. 's were 9/9 at 1 and 5 min respectively. Pitocin administered via IV for hemostasis. The umbilical cord was allowed to stop pulsating and which time it was doubly clamped by CNM and cut by FOB. Cord blood was obtained 3VC. Fundal massage and gentle cord traction applied for active management of the third stage. Placenta delivered spontaneously and intact at 1810. EBL 200mL. Fourth stage: Uterine fundus firm and there is no excessive bleeding. The perineum, vagina, and cervix were inspected and noted to have 1st degree laceration which was repaired using a 2-[address]-1 needle, in standard fashion under sterile conditions. Vaginal examination following repair was done. Tissues well approximated. initiated. Family bonding well. Both mother and baby were left in stable condition.
[2020-08-23] MEDS ORDERED: LACTATED RINGERS 1,000 ML IV SCH (19:00)
[2020-08-24] MEDS: DOCUSATE SODIUM 100 MG CAPSULE PO SCH ×2 (03:27→09:31)
[2020-08-24] MEDS: ACETAMINOPHEN 500 MG TABLET PO SCH ×3 (03:27→19:00)
[2020-08-24] MEDS: IBUPROFEN 800 MG TABLET PO SCH ×3 (03:28→19:00)
--- NOTE | 2020-08-24 12:09 | PROVIDER PROGRESS NOTE ---
Subjective - Subjective Subjective: FINAL PROGRESS NOTE: S: Bonding well with baby. without difficulty. Pain well controlled with oral medications. Bleeding decreased and is light. She is ambulating and tolerating a regular diet. She desires to be discharged home this evening at 24 hours . O: BP 115/66, T 36.6, HR 58, RR 19 Heart RRR w/o M/G/R, lungs CTAB, abdomen soft and nontender with fundus firm at U-1, perineum intact, light lochia rubra, bilateral LE's trace edema. A: 34yo -->P3 PPD#1 s/p TSVD viable male infant Normal recovery P: Reviewed pp self care and warning s/sx and when to present. Discharge today at 24 hour pp. Encouraged continuation of PNV while . Continue taking ibuprofen and tylenol OTC as needed for pain management. F/u in 1 week for routine pp visit or sooner PRN. Pt verbalized understanding and agrees to above plan. She denies questions or concerns at this time. Objective - Vital Signs/Intake & Output Vital Signs: Vital Signs x48h Temp Pulse Resp BP Pulse Ox 08/24/20 08:14 36.6 C 58 L 19 115/66 100 08/24/20 06:00 36.6 C 45 L 14 82/46 L 100 Intake & Output: Intake & Output 08/21/20 08/22/20 08/23/20 08/24/20 23:59 23:59 23:59 23:59 Intake Total 2567.5 240 Output Total 2450 Balance 117.5 240 - Lab Results Fish Bones: 08/23/20 02:40
--- NOTE | 2020-08-24 12:10 | Discharge Plan ---
Discharge Plan Problem Reviewed?: Yes Disposition: Home, Self Care Condition: Good Diet: Regular Activity Restrictions: No Restrictions Shower Restrictions: No Driving Restrictions: No Weight Bearing: Full Weight No Smoking: If you smoke, Please STOP! Call for help. Follow-up with: Luma Urbano CNM, ARNP [Provider Admit Priv/Credential] -
--- NOTE | 2020-08-24 12:29 | DISCHARGE SUMMARY ---
Discharge Summary Condition at Discharge: Good Discharge Disposition: 01 Home, Self Care - HOSPITAL COURSE Hospital Course: Date of Admission: 08/23/2020 Date of Discharge: 08/24/2020 Diagnosis on Admission: 1. 34yo @ 40.1wks gestation 2. PROM 3. GBS negative Diagnosis on Discharge: 1. 34yo PPD #1 s/p TSVD viable male 2. Normal recovery Brief History: She is a patient of [facility] who presented on 08/23/2020 with complaints of vaginal leakage of clear fluid. Her ROM plus was positive. Epidural was placed per maternal request. Pitocin was initiated for labor induction with a maximum infusion rate of 8mU/mL. She progressed to deli abdoulaye a viable male infant on 08/23/2020 @ 1803. Apgars were 9/9 at 1 and 5 minutes respectively. EBL 200mL. The perineum, vagina, and cervix were inspected and noted to have a 1st degree laceration which was repaired in standard fashion and under sterile conditions. She has been doing well in her course. She is ambulating and tolerating a regular diet. She is urinating without difficulty and her lochia is normal. Her pain is well controlled with oral medications. She will be discharg ed home today on day number one with instructions to continue taking her vitamin while and to continue taking ibuprofen and tylenol over the counter as needed for pain management. She intends to follow up with myself in 1 week for routine visit or sooner if needed. She has been given precautions to call if she has any worsening fevers, chills, abdominal pain, increased vaginal bleeding or foul smelling vaginal lochia. - ALLERGIES Allergies/Adverse Reactions: Allergies Allergy/AdvReac Type Severity Reaction Status Date / Time No Known Drug Allergies Allergy Verified 06/08/15 09:37 - MEDICATIONS Home Medications: Ambulatory Orders Medication Instructions Recorded Confirmed Hydrocortisone/Pramoxine [Epifoam] 1 spray [place] QID PRN bottle 10/17/17 Ibuprofen [Motrin] 800 mg PO Q6H tablet 10/17/17 Sertraline [Zoloft] 50 mg PO DAILY tablet 10/17/17 - LABS Result Diagrams: 08/23/20 02:40
[2020-08-24 19:39] VITALS: BP 98/61
--- NOTE | 2020-08-24 19:48 | Labor Flowsheet ---
Labor Flowsheet Datetime Report Generated by CPN: 08/24/2020 19:48 Datetime: 08/24/2020 12:42 VITAL SIGNS NBP Sys/Janel/Mean (mmHg): 102 : 57 : 68 Pulse: 46 Datetime: 08/23/2020 20:01 Stage of : Recovery Respirations: 14 SpO2 (%): 100 Datetime: 08/23/2020 19:31 Temperature (C): 36.9 Temperature Route: Oral PAIN Pain Scale: 1 Pain Presence: Intermittent Datetime: 08/23/2020 18:47 Membranes Ruptured Date/Time: 08/23/2020 00:30 Amniotic Fluid Odor: Normal Datetime: 08/23/2020 18:05 Medication Comments: pit started Datetime: 08/23/2020 18:02 Anesthesia Comments: Epidural pump off Datetime: 08/23/2020 18:01 LaborFlag: Labor Datetime: 08/23/2020 17:55 STAGE 2 Stage 2 Comments: pushing started Datetime: 08/23/2020 17:49 VAGINAL EXAM Dilatation (cm): 10.0 Datetime: 08/23/2020 17:30 Frequency (min): 3-4 ASSESSMENT A Monitor Mode: External US FHR Baseline Rate : 135 FHR Baseline Changes: No Baseline Change Variability: Moderate 6-25 bpm Accelerations: 15X15 Decelerations: None; Variable Category: Category I Datetime: 08/23/2020 17:00 UTERINE ACTIVITY Monitor Mode: External Monitor Interventions for UA: [place] Adjusted Quality: Strong Pattern: Normal: <= 5 Contractions in 10 Minutes Resting Tone (Palpate): Relaxed Datetime: 08/23/2020 16:00 Duration (sec): 60 Oxygen Method: Room Air Anesthesia Level Check: T10- Umbilicus Datetime: 08/23/2020 15:35 Effacement (%): 100 Station: -2 Exam by: kh Vaginal Bleeding: None Cervix, Consistency: Soft Vaginal Exam Comments: Pt requested vaginal exam Patient Position/Activity: Right Lateral Datetime: 08/23/2020 14:00 Pitocin Checklist: At Least 1 Acceleration of 15 bpm x 15 Seconds in 30 Minutes or Adequate Variabi lity Datetime: 08/23/2020 13:57 MEDICATIONS Pitocin (milliunits): Increased to @ 11 Datetime: 08/23/2020 12:30 Procedures: Sterile Vag Exam I/O Interventions: Clear Liquids Given Provider Reviewed Strip: Yes COMMUNICATION Communication: Provider at Bedside Notification Reason: Labor Status Datetime: 08/23/2020 10:00 Pain Relief Measures: Epidural Given Datetime: 08/23/2020 09:10 Monitor Interventions for FHR: Ultrasound Adjusted Datetime: 08/23/2020 08:13 Strip Reviewed by: ADarr, CNM Datetime: 08/23/2020 08:08 Cervix, Position: Anterior Datetime: 08/23/2020 07:30 MATERNAL ASSESSMENT Level of Consciousness: Alert Headache: Denies Nausea/Vomiting: Denies RUQ Epigastric Pain: Denies ANESTHESIA Anesthesia Plans: Epidural Datetime: 08/23/2020 06:41 PATIENT CARE IV/Blood Work: IV Infusing per Order; IV Bag Number @ 2 Datetime: 08/23/2020 06:23 Patient Care Comments: repositioned to Semi fowlers for comfort Datetime: 08/23/2020 05:01 Vital Sign Comments: denies feeling dizzy or nauseated, resting comfortably on L side Datetime: 08/23/2020 04:13 Pain Assessment Comments: feels slight pressure with contractions only Datetime: 08/23/2020 04:04 Epidural Procedure: Loading Dose Datetime: 08/23/2020 03:44 PROCEDURE TIME OUT Procedure Verify: Correct Patient Identity; Correct Side and Site are Marked; Accurate Procedure Co nsent Form; Agreement on Procedure to be Done; Correct Patient Position Epidural Positioning: Sitting
== END 2020-08-24 19:00 | disposition home or self-care (01) | DRG 807 ==
LOC: FBP 01:52 → WFO 01:52 → FBP 02:32 → WFO 02:43
PROVIDERS: ADMIT Nurse Practitioner Obstetrics & Gynecology; ATTEND Nurse Practitioner Obstetrics & Gynecology
PROC: 10E0XZZ Delivery of Products of Conception, External Approach (ICD-10-PCS; principal; 2020-08-23)
PROC: 0HQ9XZZ Repair Perineum Skin, External Approach (ICD-10-PCS; 2020-08-23)
PROC: 3E033VJ Introduction of Other Hormone into Peripheral Vein, Percutaneous Approach (ICD-10-PCS; 2020-08-23)
DX: O42.02 Full-term premature rupture of membranes, onset of labor within 24 hours of rupture (principal); Z37.0 Single live birth; O48.0 Post-term pregnancy; Z3A.40 40 weeks gestation of pregnancy; O70.0 First degree perineal laceration during delivery; O69.81X0 Labor and delivery complicated by cord around neck, without compression, not applicable or unspecified; O99.344 Other mental disorders complicating childbirth; F41.9 Anxiety disorder, unspecified; F32.9 Major depressive disorder, single episode, unspecified; Z79.899 Other long term (current) drug therapy
CPT/HCPCS: 36415; 84112; 85025; A9270; J7120; 59025; 99211

== ENCOUNTER 2021-01-18 10:31 | Outpatient (CLI) | payer OTHER ==
--- NOTE | 2021-01-18 12:32 | Ultrasound Report ---
PROCEDURE: Pelvic w/Transvaginal INDICATIONS: IUD SURVEILLLANCE TECHNIQUE: Real-time scanning was performed of the pelvic organs, with image documentation. Additional endovagi nal scanning was necessary due to incomplete visualization of the adnexal and endometrial structures by transabdominal scanning. COMPARISON: None. FINDINGS: No pathologic free abdominal or pelvic fluid. Uterus: Uterus is anteverted, anteflexed, and normal in size at 7.6 x 3.4 x 5.8 cm. The endometrium measures 2 mm in combined thickness. There are occasional scattered echogenic reflectors within the endometrial canal but no IUD is visible. Ovaries: The right ovary measures 2.5 x 1.2 x 2.4 cm for a volume of 3.7 cc. The left ovary measures 2.8 x 1.2 x 2.7 cm for a volume of 5.0 cc. There is trace fluid in each adnexa. No significant fluid in the cul-de-sac. IMPRESSION: 1. IUD not found. 2. Normal uterus and ovaries. 3. Preliminary results given by the audit spec to the ordering provider at 11:30 AM. Reviewed by: Nichole Lopez MD on 01/18/2021 12:31 PM PDT Approved by: Nichole Lopez MD on 01/18/2021 12:31 PM PDT Station ID: [id number]
== END 2021-01-18 10:32 | disposition home or self-care (01) ==
LOC: DI 10:31
PROVIDERS: ATTEND Nurse Practitioner Obstetrics & Gynecology
DX: Z30.431 Encounter for routine checking of intrauterine contraceptive device (principal)

== ENCOUNTER 2021-01-18 15:19 | Outpatient (CLI) | payer OTHER ==
--- NOTE | 2021-01-18 16:02 | XRAY Report ---
PROCEDURE: Pelvis 1 View INDICATIONS: INTRAUTERINE DEVICE SURVEILLANCE , NEG HCG THIS AM TECHNIQUE: AP pelvis was obtained. COMPARISON: Ultrasound pelvis, 01/18/2021. FINDINGS: There is an IUD in pelvis. Bowel gas pattern is normal. Osseous structures are intact. IMPRESSION: IUD in pelvis. Given nonvisualization of an IUD within the uterine cavity on the pelvic ultrasound pe rformed today, ectopic location of IUD cannot be excluded. If clinically indicated, CT may be helpful . Reviewed by: Oswald Cortez MD on 01/18/2021 4:00 PM PDT Approved by: Oswald Cortez MD on 01/18/2021 4:00 PM PDT Station ID: [id number]
== END 2021-01-18 15:20 | disposition home or self-care (01) ==
LOC: DI.N 15:19
PROVIDERS: ATTEND Nurse Practitioner Obstetrics & Gynecology
DX: Z30.431 Encounter for routine checking of intrauterine contraceptive device (principal)

== ENCOUNTER 2021-01-21 19:06 | Outpatient (CLI) | payer OTHER | END 2021-01-21 19:07 | disposition home or self-care (01) | LOC: COV 19:06 | PROVIDERS: ATTEND Obstetrics & Gynecology | DX: Z01.812 Encounter for preprocedural laboratory examination (principal); T83.32XA Displacement of intrauterine contraceptive device, initial encounter; Z20.822 Contact with and (suspected) exposure to COVID-19 ==

== ENCOUNTER 2021-02-01 13:57 | Outpatient (CLI) | payer OTHER | END 2021-02-01 13:58 | disposition home or self-care (01) | LOC: COV 13:57 | PROVIDERS: ATTEND Obstetrics & Gynecology | DX: Z01.812 Encounter for preprocedural laboratory examination (principal); T83.32XA Displacement of intrauterine contraceptive device, initial encounter; Z20.822 Contact with and (suspected) exposure to COVID-19 ==